=== PATIENT | female | born 1940 | race African-American/Black ===

== ENCOUNTER 2018-04-21 21:14 | Emergency (ER) | payer MEDICARE, MEDICAID ==
[~2018-04-21] VITALS: Ht 162.6 cm; Wt 66.0 kg
[2018-04-21] MEDS ORDERED: ONDANSETRON 4MG ODT PO ONE (22:45)
[2018-04-21] MEDS ORDERED: KETOROLAC 15MG/ML VIAL IV ONE (22:45)
[2018-04-21 23:25] LABS: BASOPHILS % 0.6 % (0.0-2.0); EOSINOPHILS % 2.2 % (0.0-5.0); HEMATOCRIT. 30.6 % (36.0-48.0); HEMOGLOBIN. 9.4 g/dL (12.0-16.0); LYMPHOCYTES % 15.5 % (20.0-50.0); MEAN CORPUSCULAR HEMOGLOBIN 23.4 pg (28.0-32.0); MEAN CORPUSCULAR VOLUME 75.8 fL (81.0-99.0); MEAN PLATELET VOLUME 7.9 fl (7.4-10.4); MONOCYTES % 7.4 % (2.0-8.0); NEUTROPHILS % 74.3 % (40.0-76.0); PLATELET 424 x1000/uL (130-400); RED BLOOD CELL COUNT 4.03 mill/uL (4.2-5.4); RED CELL DISTRIBUTION WIDTH 17.1 % (11.6-14.6)
[2018-04-21 23:28] LABS: CHLORIDE 102 mEq/L (98-107)
[2018-04-21 23:30] LABS: INR 1.1; PARTIAL THROMBOPLASTIN TIME 31.1 sec (23.4-31.0); PROTHROMBIN TIME 11.4 sec (9.1-11.1)
[2018-04-22] MEDS ORDERED: HYDROCODONE/ACETAMINOPHEN 5/325MG TABLET PO ONE
[2018-04-22 01:23] VITALS: BP 148/70
== END 2018-04-22 01:24 | disposition home or self-care (01) ==
LOC: ER 21:14
DX: M79.662 Pain in left lower leg (principal); R53.1 Weakness; I10 Essential (primary) hypertension; Z86.73 Personal history of transient ischemic attack (TIA), and cerebral infarction without residual deficits
CPT/HCPCS: 36415; 80053; 85025; 85610; 85730; 93970; 96374; 99285; J1885; Q0162

== ENCOUNTER 2018-08-28 19:28 | Inpatient (IN) | payer MEDICARE, MEDICAID ==
[~2018-08-28] VITALS: Ht 162.6 cm; Wt 56.2 kg
[2018-08-28] MEDS ORDERED: ACETAMINOPHEN 650MG SUPP PR STA (19:55)
[2018-08-28] MEDS ORDERED: PIPERACILLIN/TAZ 3.375G PREMIX 50 ML IV ONE (20:00)
[2018-08-28] MEDS ORDERED: SODIUM CHLORIDE 0.9% 1000ML BAG (SEPSIS BOLUS) IV ONE (20:00)
[2018-08-28] MEDS ORDERED: VANCOMYCIN 1 G PREMIX 200 ML IV ONE (20:00)
[2018-08-28 20:49] LABS: BASOPHILS % 0.8 % (0.0-2.0); EOSINOPHILS % 1.7 % (0.0-5.0); HEMATOCRIT. 32.6 % (36.0-48.0); LYMPHOCYTES % 17.1 % (20.0-50.0); MEAN CORPUSCULAR HEMOGLOBIN 20.7 pg (28.0-32.0); MEAN CORPUSCULAR VOLUME 67.5 fL (81.0-99.0); MEAN PLATELET VOLUME 8.3 fl (7.4-10.4); MONOCYTES % 13.5 % (2.0-8.0); NEUTROPHILS % 66.9 % (40.0-76.0); PLATELET 351 x1000/uL (130-400); RED BLOOD CELL COUNT 4.83 mill/uL (4.2-5.4); RED CELL DISTRIBUTION WIDTH 22.9 % (11.6-14.6)
[2018-08-28 20:54] LABS: CHLORIDE 98 mEq/L (98-107)
[2018-08-28 20:55] LABS: INR 1.1; PROTHROMBIN TIME 11.3 sec (9.1-11.1)
[2018-08-28 21:11] LABS: CLARITY URINE TURBID (CLEAR); COLOR URINE YELLOW (YELLOW); KETONES URINE NEGATIVE (NEGATIVE); LEUKOCYTE ESTERASE URINE 3+ (NEGATIVE); NITRITE URINE NEGATIVE (NEGATIVE); OCCULT BLOOD URINE 2+ (NEGATIVE); PH URINE 8.5 (4.5-8.0); PROTEIN URINE 2+ (NEGATIVE); SPECIFIC GRAVITY URINE 1.014 (1.005-1.030); UROBILINOGEN URINE 0.2 E.U./dL (0.2-1.0)
[2018-08-28 21:46] LABS: PLATELET ESTIMATE NORMAL
[2018-08-28] MEDS ORDERED: ONDANSETRON HCL 4MG/2ML INJ IV PRN (23:00)
[2018-08-28] MEDS ORDERED: CEFTRIAXONE 1 G PREMIX 50 ML IV SCH (23:00)
[2018-08-28] MEDS ORDERED: CLONIDINE 0.1MG TABLET PO PRN (23:00)
[2018-08-28] MEDS ORDERED: CEFTRIAXONE 1 G PREMIX 50 ML IV NR (23:45)
[2018-08-29] VITALS (8 sets, daily range): BP systolic 116–147; BP diastolic 57–86
[2018-08-29] MEDS: DEXT 5%/0.45% NACL 1000ML 1,000 ML IV SCH ×2 (00:16→14:12)
[2018-08-29 06:28] LABS: BASOPHILS % 1.2 % (0.0-2.0); EOSINOPHILS % 4.2 % (0.0-5.0); HEMOGLOBIN. 8.8 g/dL (12.0-16.0); LYMPHOCYTES % 16.3 % (20.0-50.0); MEAN CORPUSCULAR HEMOGLOBIN 20.7 pg (28.0-32.0); MEAN CORPUSCULAR VOLUME 68.3 fL (81.0-99.0); MEAN PLATELET VOLUME 8.6 fl (7.4-10.4); MONOCYTES % 13.2 % (2.0-8.0); NEUTROPHILS % 65.1 % (40.0-76.0); PLATELET 316 x1000/uL (130-400); RED BLOOD CELL COUNT 4.24 mill/uL (4.2-5.4); RED CELL DISTRIBUTION WIDTH 22.4 % (11.6-14.6)
[2018-08-29 06:33] LABS: CHLORIDE 107 mEq/L (98-107)
[2018-08-29] MEDS: ENOXAPARIN 40MG/0.4ML SYR SUBCUT SCH (09:30)
[2018-08-29] MEDS: ACETAMINOPHEN 325MG TABLET PO PRN ×2 (10:34→20:05)
[2018-08-29] MEDS ORDERED: CYCL10TA7 MT (12:18)
[2018-08-29] MEDS ORDERED: CLON-457 MT (12:18)
[2018-08-29] MEDS ORDERED: ATOR20TA65 MT (12:18)
[2018-08-29] MEDS ORDERED: VANCOMYCIN HCL 1000 MG/20 ML ORAL GT SCH (18:00)
[2018-08-29] MEDS: VANCOMYCIN HCL 1000 MG/20 ML ORAL GT SCH (20:05)
[2018-08-29] MEDS ORDERED: TRAMADOL 50MG TABLET GT PRN (21:00)
[2018-08-29] MEDS: KETOROLAC 15MG/ML VIAL IV PRN (21:10)
[2018-08-29] MEDS: CEFTRIAXONE 1,000 MG in DEXTROSE 5% WATER 50 ML IV SCH (22:42)
[2018-08-30] VITALS (11 sets, daily range): BP systolic 114–162; BP diastolic 62–98
[2018-08-30] MEDS: VANCOMYCIN HCL 1000 MG/20 ML ORAL GT SCH ×4 (01:54→20:52)
[2018-08-30] MEDS: DEXT 5%/0.45% NACL 1000ML 1,000 ML IV SCH (04:26)
[2018-08-30 06:58] LABS: BASOPHILS % 0.8 % (0.0-2.0); EOSINOPHILS % 5.8 % (0.0-5.0); HEMATOCRIT. 29.9 % (36.0-48.0); HEMOGLOBIN. 9.1 g/dL (12.0-16.0); LYMPHOCYTES % 15.6 % (20.0-50.0); MEAN CORPUSCULAR HEMOGLOBIN 20.8 pg (28.0-32.0); MEAN CORPUSCULAR VOLUME 68.5 fL (81.0-99.0); MEAN PLATELET VOLUME 8.3 fl (7.4-10.4); MONOCYTES % 10.3 % (2.0-8.0); NEUTROPHILS % 67.5 % (40.0-76.0); PLATELET 264 x1000/uL (130-400); RED BLOOD CELL COUNT 4.37 mill/uL (4.2-5.4); RED CELL DISTRIBUTION WIDTH 22.7 % (11.6-14.6)
[2018-08-30] MEDS: ENOXAPARIN 40MG/0.4ML SYR SUBCUT SCH (08:43)
[2018-08-30 08:52] LABS: CHLORIDE 103 mEq/L (98-107)
[2018-08-30] MEDS ORDERED: POTASSIUM CHLORIDE 20MEQ TABLET SR PO NR (09:45)
[2018-08-30] MEDS ORDERED: POTASSIUM CHLORIDE INJ 40 MEQ in DEXT 5% WATER 500 ML IV NR (12:00)
[2018-08-30] MEDS: AMLODIPINE 5MG TABLET PO SCH ×2 (14:00→20:21)
[2018-08-31] VITALS: BP 135/71
[2018-08-31] MEDS: CEFTRIAXONE 1,000 MG in DEXTROSE 5% WATER 50 ML IV SCH (00:55)
[2018-08-31] MEDS: KETOROLAC 15MG/ML VIAL IV PRN ×2 (00:55→19:54)
[2018-08-31] MEDS: VANCOMYCIN HCL 1000 MG/20 ML ORAL GT SCH ×4 (03:26→20:09)
[2018-08-31 04:00] VITALS: BP 175/82
[2018-08-31 08:00] VITALS: BP 141/76
[2018-08-31] MEDS: ENOXAPARIN 40MG/0.4ML SYR SUBCUT SCH (08:51)
[2018-08-31] MEDS: AMLODIPINE 5MG TABLET PO SCH ×2 (08:51→22:16)
[2018-08-31 11:15] LABS: CHLORIDE 100 mEq/L (98-107)
[2018-08-31 11:26] LABS: BASOPHILS % 0.7 % (0.0-2.0); EOSINOPHILS % 4.8 % (0.0-5.0); HEMATOCRIT. 34.3 % (36.0-48.0); HEMOGLOBIN. 10.5 g/dL (12.0-16.0); LYMPHOCYTES % 19.3 % (20.0-50.0); MEAN CORPUSCULAR VOLUME 68.6 fL (81.0-99.0); MEAN PLATELET VOLUME 8.6 fl (7.4-10.4); NEUTROPHILS % 66.2 % (40.0-76.0); PLATELET 297 x1000/uL (130-400); RED BLOOD CELL COUNT 5.01 mill/uL (4.2-5.4); RED CELL DISTRIBUTION WIDTH 22.4 % (11.6-14.6)
[2018-08-31 12:00] VITALS: BP 141/78
[2018-08-31 16:00] VITALS: BP 140/75
[2018-08-31] MEDS: DEXT 5%/0.45% NACL 1000ML 1,000 ML IV SCH (16:30)
[2018-08-31] MEDS: ZOLPIDEM TARTRATE 5MG TABLET PO PRN (19:55)
[2018-08-31 20:00] VITALS: BP 130/82
[2018-08-31] MEDS: CEFTAZIDIME PENTAHYDRATE 1 G in DEXTROSE 5% WATER 50 ML IV SCH (22:16)
[2018-09-01] VITALS: BP 134/83
[2018-09-01] MEDS: VANCOMYCIN HCL 1000 MG/20 ML ORAL GT SCH ×4 (03:00→22:45)
[2018-09-01 04:00] VITALS: BP 115/70
[2018-09-01 08:00] VITALS: BP 143/80
[2018-09-01] MEDS: AMLODIPINE 5MG TABLET PO SCH ×2 (09:16→20:59)
[2018-09-01] MEDS: CEFTAZIDIME PENTAHYDRATE 1 G in DEXTROSE 5% WATER 50 ML IV SCH ×2 (09:17→20:59)
[2018-09-01] MEDS: ENOXAPARIN 40MG/0.4ML SYR SUBCUT SCH (09:17)
[2018-09-01 09:55] LABS: CHLORIDE 102 mEq/L (98-107)
[2018-09-01 12:00] VITALS: BP 130/75
[2018-09-01] MEDS: DEXT 5%/0.45% NACL 1000ML 1,000 ML IV SCH ×2 (14:03→20:58)
[2018-09-01 16:00] VITALS: BP 140/77
[2018-09-01] MEDS: CYCLOBENZAPRINE 10MG TABLET PO SCH ×2 (16:03→22:45)
[2018-09-01 20:00] VITALS: BP 172/90
[2018-09-01] MEDS: KETOROLAC 15MG/ML VIAL IV PRN (20:53)
[2018-09-02] VITALS: BP 152/72
[2018-09-02 04:00] VITALS: BP 127/76
[2018-09-02] MEDS: VANCOMYCIN HCL 1000 MG/20 ML ORAL GT SCH ×3 (04:11→15:56)
[2018-09-02] MEDS: CYCLOBENZAPRINE 10MG TABLET PO SCH ×2 (06:57→15:55)
[2018-09-02 08:00] VITALS: BP 137/81
[2018-09-02] MEDS: AMLODIPINE 5MG TABLET PO SCH (09:00)
[2018-09-02 09:39] LABS: BASOPHILS % 0.6 % (0.0-2.0); HEMATOCRIT. 27.7 % (36.0-48.0); HEMOGLOBIN. 8.2 g/dL (12.0-16.0); LYMPHOCYTES % 11.5 % (20.0-50.0); MEAN CORPUSCULAR HEMOGLOBIN 21.1 pg (28.0-32.0); MEAN CORPUSCULAR VOLUME 71.1 fL (81.0-99.0); MEAN PLATELET VOLUME 7.9 fl (7.4-10.4); MONOCYTES % 7.3 % (2.0-8.0); NEUTROPHILS % 78.6 % (40.0-76.0); PLATELET 288 x1000/uL (130-400); RED CELL DISTRIBUTION WIDTH 22.5 % (11.6-14.6)
[2018-09-02 09:49] LABS: CHLORIDE 98 mEq/L (98-107)
[2018-09-02] MEDS: CEFTAZIDIME PENTAHYDRATE 1 G in DEXTROSE 5% WATER 50 ML IV SCH ×2 (10:17→21:00)
[2018-09-02] MEDS: ENOXAPARIN 40MG/0.4ML SYR SUBCUT SCH (10:21)
[2018-09-02] MEDS: DEXT 5%/0.45% NACL 1000ML 1,000 ML IV SCH ×2 (10:25→23:45)
[2018-09-02] MEDS: POTASSIUM CHLORIDE 20MEQ TABLET SR PO SCH (11:34)
[2018-09-02 12:00] VITALS: BP_SYST 134; BP_SYST 137; BP_DIAS 75; BP_DIAS 79
[2018-09-02] MEDS ORDERED: POTASSIUM CHLORIDE INJ 40 MEQ in DEXT 5% WATER 500 ML IV NR (12:00)
[2018-09-02 16:00] VITALS: BP 137/79
[2018-09-02] MEDS ORDERED: POTASSIUM CHLORIDE 20MEQ TABLET SR PO NR (16:30)
[2018-09-02 20:00] VITALS: BP 138/77
[2018-09-03] VITALS: BP 139/73
[2018-09-03] MEDS: AMLODIPINE 5MG TABLET PO SCH ×3 (00:41→20:12)
[2018-09-03] MEDS: CYCLOBENZAPRINE 10MG TABLET PO SCH ×4 (00:41→21:16)
[2018-09-03] MEDS: VANCOMYCIN HCL 1000 MG/20 ML ORAL GT SCH ×5 (00:43→20:13)
[2018-09-03 04:00] VITALS: BP 129/73
[2018-09-03 06:29] LABS: CHLORIDE 102 mEq/L (98-107)
[2018-09-03 06:35] LABS: BASOPHILS % 0.5 % (0.0-2.0); EOSINOPHILS % 3.5 % (0.0-5.0); HEMATOCRIT. 31.5 % (36.0-48.0); HEMOGLOBIN. 9.8 g/dL (12.0-16.0); LYMPHOCYTES % 11.7 % (20.0-50.0); MEAN CORPUSCULAR HEMOGLOBIN 20.9 pg (28.0-32.0); MEAN CORPUSCULAR VOLUME 67.4 fL (81.0-99.0); MEAN PLATELET VOLUME 8.6 fl (7.4-10.4); MONOCYTES % 7.4 % (2.0-8.0); NEUTROPHILS % 76.9 % (40.0-76.0); PLATELET 386 x1000/uL (130-400); RED BLOOD CELL COUNT 4.67 mill/uL (4.2-5.4); RED CELL DISTRIBUTION WIDTH 21.9 % (11.6-14.6)
[2018-09-03 08:00] VITALS: BP 110/68
[2018-09-03] MEDS: CEFTAZIDIME PENTAHYDRATE 1 G in DEXTROSE 5% WATER 50 ML IV SCH (08:46)
[2018-09-03] MEDS: ENOXAPARIN 40MG/0.4ML SYR SUBCUT SCH (09:00)
[2018-09-03] MEDS: POTASSIUM CHLORIDE 20MEQ TABLET SR PO SCH (09:12)
[2018-09-03 12:00] VITALS: BP 123/78
[2018-09-03] MEDS: DEXT 5%/0.45% NACL 1000ML 1,000 ML IV SCH (14:42)
[2018-09-03 20:00] VITALS: BP 140/109
[2018-09-03] MEDS: ACETAMINOPHEN 325MG TABLET PO PRN (21:53)
[2018-09-03] MEDS: ZOLPIDEM TARTRATE 5MG TABLET PO PRN (22:03)
[2018-09-04] VITALS: BP 139/76
[2018-09-04] MEDS: DEXT 5%/0.45% NACL 1000ML 1,000 ML IV SCH (02:46)
[2018-09-04] MEDS: VANCOMYCIN HCL 1000 MG/20 ML ORAL GT SCH ×3 (02:51→14:00)
[2018-09-04 04:00] VITALS: BP 141/77
[2018-09-04] MEDS: CYCLOBENZAPRINE 10MG TABLET PO SCH ×2 (06:02→13:59)
[2018-09-04 06:47] LABS: CHLORIDE 104 mEq/L (98-107)
[2018-09-04 08:00] VITALS: BP 120/68
[2018-09-04] MEDS: ENOXAPARIN 40MG/0.4ML SYR SUBCUT SCH (08:55)
[2018-09-04] MEDS: POTASSIUM CHLORIDE 20MEQ TABLET SR PO SCH (08:56)
[2018-09-04] MEDS: AMLODIPINE 5MG TABLET PO SCH (08:56)
[2018-09-04 09:36] LABS: BASOPHILS % 0.3 % (0.0-2.0); EOSINOPHILS % 3.1 % (0.0-5.0); HEMATOCRIT. 29.8 % (36.0-48.0); HEMOGLOBIN. 9.2 g/dL (12.0-16.0); LYMPHOCYTES % 11.2 % (20.0-50.0); MEAN CORPUSCULAR HEMOGLOBIN 20.7 pg (28.0-32.0); MEAN CORPUSCULAR VOLUME 67.2 fL (81.0-99.0); MEAN PLATELET VOLUME 7.6 fl (7.4-10.4); MONOCYTES % 6.2 % (2.0-8.0); NEUTROPHILS % 79.2 % (40.0-76.0); PLATELET 392 x1000/uL (130-400); RED BLOOD CELL COUNT 4.43 mill/uL (4.2-5.4); RED CELL DISTRIBUTION WIDTH 22.1 % (11.6-14.6)
[2018-09-04 12:20] VITALS: BP 146/72
[2018-09-04 16:00] VITALS: BP 130/73
== END 2018-09-04 17:54 | disposition home health service (06) | DRG 871 ==
LOC: ER 19:28 → EDBEDREQ 21:16 → EDBEDREQSVC 21:16 → EDBEDREQTM 21:16 → EDBEDREQ 21:17 → 5EST 21:28 → EDBEDREQSVC 21:31 → EDBEDREQ 21:31 → SUPCPDRO 22:56 → ENRESERV 08-29 09:52 → 6EST 08-30 17:26
PROVIDERS: ADMIT Hospitalist; ATTEND Hospitalist
PROC: 02HV33Z Insertion of Infusion Device into Superior Vena Cava, Percutaneous Approach (ICD-10-PCS; principal; 2018-09-03)
PROC: B548ZZA Ultrasonography of Superior Vena Cava, Guidance (ICD-10-PCS; 2018-09-03)
DX: A41.50 Gram-negative sepsis, unspecified (principal); L89.624 Pressure ulcer of left heel, stage 4; E43 Unspecified severe protein-calorie malnutrition; G93.40 Encephalopathy, unspecified; N39.0 Urinary tract infection, site not specified; A04.72 Enterocolitis due to Clostridium difficile, not specified as recurrent; E87.1 Hypo-osmolality and hyponatremia; I69.354 Hemiplegia and hemiparesis following cerebral infarction affecting left non-dominant side; E11.9 Type 2 diabetes mellitus without complications; E87.6 Hypokalemia; Z66 Do not resuscitate; F03.90 Unspecified dementia, unspecified severity, without behavioral disturbance, psychotic disturbance, mood disturbance, and anxiety; B95.2 Enterococcus as the cause of diseases classified elsewhere; Z16.21 Resistance to vancomycin; D64.9 Anemia, unspecified; H40.9 Unspecified glaucoma; E78.00 Pure hypercholesterolemia, unspecified; I10 Essential (primary) hypertension; I25.10 Atherosclerotic heart disease of native coronary artery without angina pectoris; K21.9 Gastro-esophageal reflux disease without esophagitis; L89.159 Pressure ulcer of sacral region, unspecified stage; Z87.891 Personal history of nicotine dependence; Z93.1 Gastrostomy status; Z68.21 Body mass index [BMI] 21.0-21.9, adult
CPT/HCPCS: 36415; 36569; 71045; 76937; 83605; 83735; 84145; 84484; 87015; 87045; 87077; 87186; 87427; 87449; 87493; 93005; 93970; 96365; 96367; 99291; C1725; C1893; J0696; J0713; J1650; J1885; J2543; J3370; J3480; J7030; J7060

== ENCOUNTER 2018-10-09 18:49 | Inpatient (IN) | payer MEDICARE, MEDICAID ==
[~2018-10-09] VITALS: Ht 162.6 cm; Wt 57.0 kg
[~2018-10-09 18:49] MED LIST: ATOR20TA65 MT; CLON-457 MT; CYCL10TA7 MT
[2018-10-09] MEDS ORDERED: SODIUM CHLORIDE 0.9% 1,000 ML IV ONE ×2 (19:29)
[2018-10-09 20:06] LABS: BASOPHILS % 0.9 % (0.0-2.0); EOSINOPHILS % 4.8 % (0.0-5.0); HEMATOCRIT. 36.6 % (36.0-48.0); HEMOGLOBIN. 11.4 g/dL (12.0-16.0); LYMPHOCYTES % 11.2 % (20.0-50.0); MEAN CORPUSCULAR HEMOGLOBIN 21.9 pg (28.0-32.0); MEAN CORPUSCULAR VOLUME 70.4 fL (81.0-99.0); MONOCYTES % 7.2 % (2.0-8.0); NEUTROPHILS % 75.9 % (40.0-76.0); PLATELET 363 x1000/uL (130-400); RED CELL DISTRIBUTION WIDTH 21.8 % (11.6-14.6)
[2018-10-09 20:10] LABS: CHLORIDE 109 mEq/L (98-107)
[2018-10-09 20:11] LABS: INR 1.1; PROTHROMBIN TIME 11.5 sec (9.1-11.1)
[2018-10-09] MEDS ORDERED: PIPERACILLIN/TAZ 3.375G PREMIX 50 ML IV ONE (21:00)
[2018-10-09] MEDS ORDERED: VANCOMYCIN 1 G PREMIX 200 ML IV SCH (21:00)
[2018-10-10 02:19] LABS: CLARITY URINE TURBID (CLEAR); COLOR URINE RED (YELLOW); KETONES URINE TRACE (NEGATIVE); LEUKOCYTE ESTERASE URINE 3+ (NEGATIVE); NITRITE URINE POSITIVE (NEGATIVE); OCCULT BLOOD URINE 3+ (NEGATIVE); PROTEIN URINE 4+ (NEGATIVE); SPECIFIC GRAVITY URINE 1.021 (1.005-1.030); UROBILINOGEN URINE 0.2 E.U./dL (0.2-1.0)
[2018-10-10] MEDS ORDERED: PIPERACILLIN/TAZ 3.375G PREMIX 50 ML IV SCH (06:00)
[2018-10-10] MEDS ORDERED: ONDANSETRON HCL 4MG/2ML INJ IV PRN (06:00)
[2018-10-10] MEDS ORDERED: DOCUSATE SODIUM 100MG CAPSULE PO PRN (06:00)
[2018-10-10] MEDS ORDERED: ACETAMINOPHEN 650MG SUPP PR PRN (06:00)
[2018-10-10] MEDS ORDERED: GUAIFENESIN 200MG/10ML SUGAR FREE UDC PO PRN (06:00)
[2018-10-10 08:00] VITALS: BP 142/88
[2018-10-10 10:00] VITALS: BP 142/89
[2018-10-10] MEDS ORDERED: VANCOMYCIN 750 MG PREMIX 150 ML IV SCH (10:00)
[2018-10-10] MEDS: ENOXAPARIN 40MG/0.4ML SYR SUBCUT SCH (10:39)
[2018-10-10] MEDS: DEXT 5%/0.45% NACL 1000ML 1,000 ML IV SCH (10:41)
[2018-10-10 12:00] VITALS: BP 147/86
[2018-10-10] MEDS: PIPERACILLIN/TAZ 3.375G PREMIX 50 ML IV SCH ×3 (13:00→23:47)
[2018-10-10 16:00] VITALS: BP 161/91
[2018-10-10 20:00] VITALS: BP 145/77
[2018-10-10] MEDS: VANCOMYCIN HCL 1000 MG/20 ML ORAL GT SCH ×2 (20:12→23:45)
[2018-10-11] VITALS: BP 134/81
[2018-10-11 04:00] VITALS: BP 144/90
[2018-10-11] MEDS: VANCOMYCIN HCL 1000 MG/20 ML ORAL GT SCH ×3 (05:12→18:51)
[2018-10-11] MEDS: PIPERACILLIN/TAZ 3.375G PREMIX 50 ML IV SCH ×3 (05:13→18:51)
[2018-10-11] MEDS: DEXT 5%/0.45% NACL 1000ML 1,000 ML IV SCH (05:13)
[2018-10-11 07:06] LABS: BASOPHILS % 0.9 % (0.0-2.0); EOSINOPHILS % 7.7 % (0.0-5.0); HEMATOCRIT. 32.9 % (36.0-48.0); HEMOGLOBIN. 10.1 g/dL (12.0-16.0); MEAN CORPUSCULAR HEMOGLOBIN 21.7 pg (28.0-32.0); MEAN CORPUSCULAR VOLUME 70.7 fL (81.0-99.0); MEAN PLATELET VOLUME 8.4 fl (7.4-10.4); MONOCYTES % 9.2 % (2.0-8.0); NEUTROPHILS % 73.2 % (40.0-76.0); PLATELET 364 x1000/uL (130-400); RED BLOOD CELL COUNT 4.66 mill/uL (4.2-5.4); RED CELL DISTRIBUTION WIDTH 21.5 % (11.6-14.6)
[2018-10-11 07:32] LABS: CHLORIDE 114 mEq/L (98-107)
[2018-10-11 08:00] VITALS: BP 169/73
[2018-10-11] MEDS: CLONIDINE 0.1MG TABLET PO PRN (09:32)
[2018-10-11] MEDS: ENOXAPARIN 40MG/0.4ML SYR SUBCUT SCH (09:32)
[2018-10-11 12:00] VITALS: BP 147/85
[2018-10-11] MEDS ORDERED: ACETAMINOPHEN 650MG/20.3ML UDC GT PRN (12:00)
[2018-10-11] MEDS: DEXT 5% WATER + KCL 20MEQ/L 1,000 ML IV SCH (14:47)
[2018-10-11 16:00] VITALS: BP 141/74
[2018-10-11 20:00] VITALS: BP 137/74
[2018-10-11] MEDS: CLOTRIMAZOLE 1% CREAM 30GM TOP SCH (22:23)
[2018-10-12] VITALS: BP 126/71
[2018-10-12] MEDS: PIPERACILLIN/TAZ 3.375G PREMIX 50 ML IV SCH ×5 (00:57→23:39)
[2018-10-12] MEDS: VANCOMYCIN HCL 1000 MG/20 ML ORAL GT SCH ×5 (00:57→23:42)
[2018-10-12 04:00] VITALS: BP 137/72
[2018-10-12] MEDS: DEXT 5% WATER + KCL 20MEQ/L 1,000 ML IV SCH ×2 (06:04→18:47)
[2018-10-12 07:27] LABS: BASOPHILS % 0.9 % (0.0-2.0); EOSINOPHILS % 10.2 % (0.0-5.0); HEMATOCRIT. 31.5 % (36.0-48.0); HEMOGLOBIN. 9.7 g/dL (12.0-16.0); LYMPHOCYTES % 14.9 % (20.0-50.0); MEAN CORPUSCULAR HEMOGLOBIN 21.9 pg (28.0-32.0); MEAN CORPUSCULAR VOLUME 70.9 fL (81.0-99.0); MEAN PLATELET VOLUME 8.5 fl (7.4-10.4); MONOCYTES % 8.5 % (2.0-8.0); NEUTROPHILS % 65.5 % (40.0-76.0); PLATELET 355 x1000/uL (130-400); RED BLOOD CELL COUNT 4.44 mill/uL (4.2-5.4); RED CELL DISTRIBUTION WIDTH 21.8 % (11.6-14.6)
[2018-10-12 07:57] LABS: CHLORIDE 110 mEq/L (98-107)
[2018-10-12 08:00] VITALS: BP 140/79
[2018-10-12] MEDS: ENOXAPARIN 40MG/0.4ML SYR SUBCUT SCH (09:53)
[2018-10-12] MEDS: POTASSIUM CHLORIDE 20MEQ TABLET SR PO SCH (09:53)
[2018-10-12] MEDS: CLOTRIMAZOLE 1% CREAM 30GM TOP SCH ×2 (09:53→21:25)
[2018-10-12 12:10] VITALS: BP 165/92
[2018-10-12] MEDS: CLONIDINE 0.1MG TABLET PO PRN (12:53)
[2018-10-12 16:00] VITALS: BP 145/87
[2018-10-12 20:00] VITALS: BP 141/71
[2018-10-13] VITALS: BP 126/80
[2018-10-13 04:00] VITALS: BP 169/88
[2018-10-13] MEDS: DEXT 5% WATER + KCL 20MEQ/L 1,000 ML IV SCH ×2 (05:02→18:20)
[2018-10-13] MEDS: PIPERACILLIN/TAZ 3.375G PREMIX 50 ML IV SCH ×4 (05:02→23:29)
[2018-10-13] MEDS: VANCOMYCIN HCL 1000 MG/20 ML ORAL GT SCH ×4 (05:02→23:30)
[2018-10-13 07:35] LABS: CHLORIDE 100 mEq/L (98-107)
[2018-10-13 08:00] VITALS: BP 164/95
[2018-10-13] MEDS: ENOXAPARIN 40MG/0.4ML SYR SUBCUT SCH (08:55)
[2018-10-13] MEDS: POTASSIUM CHLORIDE 20MEQ TABLET SR PO SCH (08:56)
[2018-10-13] MEDS: CLONIDINE 0.1MG TABLET PO PRN (08:56)
[2018-10-13] MEDS: CLOTRIMAZOLE 1% CREAM 30GM TOP SCH ×2 (08:57→21:16)
[2018-10-13 11:05] LABS: BASOPHILS % 0.6 % (0.0-2.0); EOSINOPHILS % 12.7 % (0.0-5.0); HEMATOCRIT. 33.9 % (36.0-48.0); HEMOGLOBIN. 10.5 g/dL (12.0-16.0); LYMPHOCYTES % 14.7 % (20.0-50.0); MEAN CORPUSCULAR HEMOGLOBIN 21.7 pg (28.0-32.0); MEAN CORPUSCULAR VOLUME 70.5 fL (81.0-99.0); MEAN PLATELET VOLUME 8.2 fl (7.4-10.4); MONOCYTES % 7.2 % (2.0-8.0); NEUTROPHILS % 64.8 % (40.0-76.0); PLATELET 344 x1000/uL (130-400); RED BLOOD CELL COUNT 4.82 mill/uL (4.2-5.4); RED CELL DISTRIBUTION WIDTH 21.3 % (11.6-14.6)
[2018-10-13 12:00] VITALS: BP 177/94
[2018-10-13] MEDS: TRAMADOL 50MG TABLET GT PRN ×2 (13:00→21:16)
[2018-10-13] MEDS: ATENOLOL 25MG TABLET PO SCH ×2 (14:02→21:16)
[2018-10-13 16:00] VITALS: BP 130/77
[2018-10-13 20:00] VITALS: BP 128/75
[2018-10-14] VITALS: BP 107/53
[2018-10-14] MEDS: DEXT 5% WATER + KCL 20MEQ/L 1,000 ML IV SCH (01:17)
[2018-10-14 04:00] VITALS: BP 116/57
[2018-10-14] MEDS: VANCOMYCIN HCL 1000 MG/20 ML ORAL GT SCH ×3 (05:14→17:22)
[2018-10-14 08:00] VITALS: BP 156/82
[2018-10-14] MEDS: CLOTRIMAZOLE 1% CREAM 30GM TOP SCH ×2 (09:04→20:42)
[2018-10-14] MEDS: ATENOLOL 25MG TABLET PO SCH ×2 (09:05→20:30)
[2018-10-14] MEDS: POTASSIUM CHLORIDE 20MEQ TABLET SR PO SCH (09:05)
[2018-10-14] MEDS: ENOXAPARIN 40MG/0.4ML SYR SUBCUT SCH (09:05)
[2018-10-14 12:00] VITALS: BP 114/75
[2018-10-14 16:00] VITALS: BP 162/89
[2018-10-14 20:00] VITALS: BP 143/108
[2018-10-14] MEDS: TRAMADOL 50MG TABLET GT PRN (20:31)
[2018-10-15] VITALS: BP 131/77
[2018-10-15] MEDS: VANCOMYCIN HCL 1000 MG/20 ML ORAL GT SCH ×3 (00:51→11:49)
[2018-10-15 04:00] VITALS: BP 128/67
[2018-10-15] MEDS: DEXT 5% WATER + KCL 20MEQ/L 1,000 ML IV SCH ×2 (04:29→11:49)
[2018-10-15 08:00] VITALS: BP 130/76
[2018-10-15] MEDS: POTASSIUM CHLORIDE 20MEQ TABLET SR PO SCH (09:57)
[2018-10-15] MEDS: ENOXAPARIN 40MG/0.4ML SYR SUBCUT SCH (09:58)
[2018-10-15] MEDS: ATENOLOL 25MG TABLET PO SCH (09:58)
[2018-10-15] MEDS: CLOTRIMAZOLE 1% CREAM 30GM TOP SCH (09:59)
[2018-10-15] MEDS ORDERED: IPRATROPIUM/ALBUTEROL 0.5-3(2.5)MG/3ML NEB HHN PRN (11:45)
[2018-10-15 12:00] VITALS: BP 149/84
[2018-10-15 16:00] VITALS: BP 143/67
[2018-10-15 17:34] VITALS: BP 143/67
== END 2018-10-15 18:25 | disposition home health service (06) | DRG 871 ==
LOC: ER 18:49 → 5WST 21:14 → EDBEDREQ 21:16 → EDBEDREQSVC 21:16 → EDBEDREQTM 21:16 → ENRESERV 10-10 07:12
PROVIDERS: ADMIT Hospitalist; ATTEND Hospitalist
DX: A41.9 Sepsis, unspecified organism (principal); E43 Unspecified severe protein-calorie malnutrition; G93.41 Metabolic encephalopathy; N39.0 Urinary tract infection, site not specified; E87.0 Hyperosmolality and hypernatremia; A04.71 Enterocolitis due to Clostridium difficile, recurrent; M86.8X7 Other osteomyelitis, ankle and foot; E86.0 Dehydration; Z66 Do not resuscitate; L89.159 Pressure ulcer of sacral region, unspecified stage; B35.4 Tinea corporis; B36.9 Superficial mycosis, unspecified; D64.9 Anemia, unspecified; E11.51 Type 2 diabetes mellitus with diabetic peripheral angiopathy without gangrene; L89.229 Pressure ulcer of left hip, unspecified stage; S40.222A Blister (nonthermal) of left shoulder, initial encounter; X58.XXXA Exposure to other specified factors, initial encounter; L89.529 Pressure ulcer of left ankle, unspecified stage; L89.519 Pressure ulcer of right ankle, unspecified stage; F01.50 Vascular dementia, unspecified severity, without behavioral disturbance, psychotic disturbance, mood disturbance, and anxiety; I10 Essential (primary) hypertension; I25.10 Atherosclerotic heart disease of native coronary artery without angina pectoris; M20.40 Other hammer toe(s) (acquired), unspecified foot; Z86.73 Personal history of transient ischemic attack (TIA), and cerebral infarction without residual deficits; Z79.899 Other long term (current) drug therapy; Y93.89 Activity, other specified; Y92.89 Other specified places as the place of occurrence of the external cause; Y99.8 Other external cause status; Z74.01 Bed confinement status; Z93.1 Gastrostomy status; Z68.21 Body mass index [BMI] 21.0-21.9, adult
CPT/HCPCS: 36415; 71045; 73630; 82962; 83605; 83735; 83880; 84134; 84145; 84484; 85651; 86140; 87045; 87493; 93005; 93923; 93970; 96365; 96366; 96367; 99285; C1893; J1650; J2543; J3370; J7030; J7050; J7060

== ENCOUNTER 2018-11-16 11:48 | Inpatient (IN) | payer MEDICARE, MEDICAID ==
[~2018-11-16] VITALS: Ht 160 cm; Wt 52.6 kg
[2018-11-16] MEDS ORDERED: SODIUM CHLORIDE 0.9% 1000ML BAG (SEPSIS BOLUS) IV ONE (12:45)
[2018-11-16 13:10] LABS: BASOPHILS % 0.7 % (0.0-2.0); HEMATOCRIT. 37.9 % (36.0-48.0); HEMOGLOBIN. 11.5 g/dL (12.0-16.0); LYMPHOCYTES % 16.4 % (20.0-50.0); MEAN CORPUSCULAR VOLUME 72.9 fL (81.0-99.0); MONOCYTES % 6.3 % (2.0-8.0); NEUTROPHILS % 65.6 % (40.0-76.0); PLATELET 322 x1000/uL (130-400)
[2018-11-16 13:19] LABS: CHLORIDE 114 mEq/L (98-107)
[2018-11-16 13:20] LABS: INR 1.1; PARTIAL THROMBOPLASTIN TIME 32.2 sec (23.4-31.0)
[2018-11-16] MEDS ORDERED: CLONIDINE 0.1MG TABLET PO PRN (14:30)
[2018-11-16] MEDS ORDERED: MORPHINE SULFATE 2 MG/ML CPJ (NOT FOR IM USE) IV ONE (14:30)
[2018-11-16] MEDS ORDERED: ONDANSETRON HCL 4MG/2ML INJ IV PRN (14:30)
[2018-11-16] MEDS ORDERED: CEFTRIAXONE 1 G PREMIX 50 ML IV ONE (14:45)
[2018-11-16] MEDS ORDERED: MORPHINE SULFATE 4 MG/ML CPJ (NOT FOR IM USE) IV NR (15:00)
[2018-11-16 15:21] LABS: CLARITY URINE TURBID (CLEAR); COLOR URINE YELLOW (YELLOW); KETONES URINE NEGATIVE (NEGATIVE); LEUKOCYTE ESTERASE URINE 3+ (NEGATIVE); NITRITE URINE NEGATIVE (NEGATIVE); OCCULT BLOOD URINE 1+ (NEGATIVE); PROTEIN URINE TRACE (NEGATIVE); SPECIFIC GRAVITY URINE 1.013 (1.005-1.030); UROBILINOGEN URINE 0.2 E.U./dL (0.2-1.0)
[2018-11-16 23:00] VITALS: BP 126/78
[2018-11-17] VITALS: BP 125/69
[2018-11-17] MEDS: PANTOPRAZOLE SODIUM 40 MG/VIAL IV SCH ×2 (00:59→22:31)
[2018-11-17] MEDS: ENOXAPARIN 30MG/0.3ML SYR SUBCUT SCH ×2 (00:59→22:32)
[2018-11-17] MEDS: SODIUM CHLORIDE 0.45% 1,000 ML IV SCH ×2 (02:33→22:44)
[2018-11-17 06:13] LABS: BASOPHILS % 1.1 % (0.0-2.0); EOSINOPHILS % 12.3 % (0.0-5.0); HEMATOCRIT. 36.1 % (36.0-48.0); HEMOGLOBIN. 10.9 g/dL (12.0-16.0); LYMPHOCYTES % 18.9 % (20.0-50.0); MEAN CORPUSCULAR HEMOGLOBIN 21.9 pg (28.0-32.0); MEAN CORPUSCULAR VOLUME 72.6 fL (81.0-99.0); MEAN PLATELET VOLUME 9.2 fl (7.4-10.4); MONOCYTES % 5.7 % (2.0-8.0); PLATELET 284 x1000/uL (130-400); RED BLOOD CELL COUNT 4.97 mill/uL (4.2-5.4); RED CELL DISTRIBUTION WIDTH 20.7 % (11.6-14.6)
[2018-11-17 07:28] LABS: CHLORIDE 114 mEq/L (98-107)
[2018-11-17 08:00] VITALS: BP 138/79
[2018-11-17] MEDS ORDERED: MORPHINE SULFATE 4 MG/ML CPJ (NOT FOR IM USE) IV PRN (11:15)
[2018-11-17 12:00] VITALS: BP 125/77
[2018-11-17 16:00] VITALS: BP 160/84
[2018-11-17] MEDS ORDERED: CEFTRIAXONE 1 G PREMIX 50 ML IV SCH (16:00)
[2018-11-17] MEDS: HYDROCODONE/ACETAMINOPHEN 5/325MG TABLET PO PRN (16:55)
[2018-11-17 20:00] VITALS: BP 150/90
[2018-11-18] VITALS: BP 167/88
[2018-11-18 04:00] VITALS: BP 159/86
[2018-11-18 06:37] LABS: BASOPHILS % 0.5 % (0.0-2.0); EOSINOPHILS % 12.5 % (0.0-5.0); HEMATOCRIT. 34.3 % (36.0-48.0); HEMOGLOBIN. 10.7 g/dL (12.0-16.0); LYMPHOCYTES % 14.3 % (20.0-50.0); MEAN CORPUSCULAR HEMOGLOBIN 22.1 pg (28.0-32.0); MEAN CORPUSCULAR VOLUME 71.2 fL (81.0-99.0); MEAN PLATELET VOLUME 9.1 fl (7.4-10.4); MONOCYTES % 7.1 % (2.0-8.0); NEUTROPHILS % 65.6 % (40.0-76.0); PLATELET 264 x1000/uL (130-400); RED BLOOD CELL COUNT 4.82 mill/uL (4.2-5.4); RED CELL DISTRIBUTION WIDTH 21.3 % (11.6-14.6)
[2018-11-18 07:30] LABS: CHLORIDE 110 mEq/L (98-107)
[2018-11-18 08:00] VITALS: BP_SYST 142; BP_SYST 161; BP_DIAS 55; BP_DIAS 76
[2018-11-18] MEDS ORDERED: POTASSIUM CHLORIDE 20MEQ TABLET SR PO SCH (10:45)
[2018-11-18 11:04] LABS: PLATELET ESTIMATE NORMAL
[2018-11-18 12:00] VITALS: BP 140/70
[2018-11-18] MEDS ORDERED: CHLORHEXIDINE GLUCONATE 4% EXTERNAL USE TOP SCH (12:00)
[2018-11-18] MEDS ORDERED: MUPIROCIN 2% OINT 22GM TOP SCH (12:00)
[2018-11-18] MEDS: HYDROCODONE/ACETAMINOPHEN 5/325MG TABLET PO PRN (12:42)
[2018-11-18 15:30] VITALS: BP 152/92
== END 2018-11-18 15:40 | disposition home or self-care (01) | DRG 689 ==
LOC: ER 12:05 → 5WST 14:32 → ENRESERV 20:54
PROVIDERS: ADMIT Hospitalist; ATTEND Hospitalist
DX: N39.0 Urinary tract infection, site not specified (principal); E43 Unspecified severe protein-calorie malnutrition; A04.71 Enterocolitis due to Clostridium difficile, recurrent; I69.354 Hemiplegia and hemiparesis following cerebral infarction affecting left non-dominant side; R65.10 Systemic inflammatory response syndrome (SIRS) of non-infectious origin without acute organ dysfunction; R62.7 Adult failure to thrive; Z66 Do not resuscitate; F03.90 Unspecified dementia, unspecified severity, without behavioral disturbance, psychotic disturbance, mood disturbance, and anxiety; I10 Essential (primary) hypertension; R13.10 Dysphagia, unspecified; Z93.1 Gastrostomy status; Z68.20 Body mass index [BMI] 20.0-20.9, adult; Z86.19 Personal history of other infectious and parasitic diseases
CPT/HCPCS: 36415; 71045; 83605; 83880; 84145; 84484; 93005; 93970; 96365; 96366; 96375; 99285; A6261; C1893; C9113; J0696; J1650; J2270; J7030

== ENCOUNTER 2019-01-25 08:23 | Inpatient (IN) | payer MEDICARE, MEDICAID ==
[~2019-01-25] VITALS: Ht 157.5 cm; Wt 52.2 kg
[2019-01-25] MEDS ORDERED: SODIUM CHLORIDE 0.9% 1000ML BAG (SEPSIS BOLUS) IV ONE (09:45)
[2019-01-25 10:29] LABS: BASOPHILS % 0.9 % (0.0-2.0); EOSINOPHILS % 9.8 % (0.0-5.0); HEMATOCRIT. 33.1 % (36.0-48.0); HEMOGLOBIN. 10.2 g/dL (12.0-16.0); LYMPHOCYTES % 14.6 % (20.0-50.0); MEAN CORPUSCULAR HEMOGLOBIN 22.3 pg (28.0-32.0); MEAN CORPUSCULAR VOLUME 72.3 fL (81.0-99.0); MONOCYTES % 7.7 % (2.0-8.0); RED BLOOD CELL COUNT 4.58 mill/uL (4.2-5.4); RED CELL DISTRIBUTION WIDTH 17.5 % (11.6-14.6)
[2019-01-25 10:31] LABS: CHLORIDE 106 mEq/L (98-107)
[2019-01-25 13:08] LABS: CLARITY URINE TURBID (CLEAR); COLOR URINE YELLOW (YELLOW); KETONES URINE NEGATIVE (NEGATIVE); LEUKOCYTE ESTERASE URINE 3+ (NEGATIVE); NITRITE URINE POSITIVE (NEGATIVE); OCCULT BLOOD URINE 2+ (NEGATIVE); PROTEIN URINE NEGATIVE (NEGATIVE); SPECIFIC GRAVITY URINE 1.015 (1.005-1.030); UROBILINOGEN URINE 0.2 E.U./dL (0.2-1.0)
[2019-01-25] MEDS ORDERED: CEFTRIAXONE 1 G PREMIX 50 ML IV ONE (13:30)
[2019-01-25] MEDS ORDERED: ONDANSETRON HCL 4MG/2ML INJ IV PRN (14:15)
[2019-01-25] MEDS ORDERED: ACETAMINOPHEN 325MG TABLET PO PRN (14:15)
[2019-01-25] MEDS ORDERED: HYDROMORPHONE HCL/PF 2MG/ML CPJ IV PRN (14:15)
[2019-01-25 17:41] VITALS: BP 134/82
[2019-01-25] MEDS ORDERED: LEVOFLOXACIN 500MG PREMIX 100 ML IV SCH (19:00)
[2019-01-25] MEDS ORDERED: ENOXAPARIN 40MG/0.4ML SYR SUBCUT SCH (19:00)
[2019-01-25 20:00] VITALS: BP 139/73
[2019-01-26] VITALS: BP 138/85
[2019-01-26 04:00] VITALS: BP 130/71
[2019-01-26 07:19] LABS: BASOPHILS % 0.7 % (0.0-2.0); EOSINOPHILS % 5.8 % (0.0-5.0); HEMATOCRIT. 32.8 % (36.0-48.0); LYMPHOCYTES % 12.1 % (20.0-50.0); MEAN CORPUSCULAR HEMOGLOBIN 22.3 pg (28.0-32.0); MEAN PLATELET VOLUME 8.7 fl (7.4-10.4); MONOCYTES % 8.2 % (2.0-8.0); NEUTROPHILS % 73.2 % (40.0-76.0); PLATELET 438 x1000/uL (130-400); RED CELL DISTRIBUTION WIDTH 17.8 % (11.6-14.6)
[2019-01-26 07:37] LABS: CHLORIDE 107 mEq/L (98-107)
[2019-01-26] MEDS: SODIUM CHLORIDE 0.9% 1,000 ML IV SCH ×2 (09:26→16:46)
[2019-01-26] MEDS ORDERED: LIDOCAINE HCL 1% 20ML VIAL (Pyxis) INJ ONE (11:12)
[2019-01-26 12:00] VITALS: BP 120/75
[2019-01-26] MEDS: ENOXAPARIN 30MG/0.3ML SYR SUBCUT SCH (17:24)
[2019-01-26] MEDS: LEVOFLOXACIN 250MG PREMIX 50 ML IV SCH (19:06)
[2019-01-26 20:00] VITALS: BP 128/75
[2019-01-27] VITALS: BP 141/79
[2019-01-27 04:00] VITALS: BP 118/68
[2019-01-27 06:17] LABS: BASOPHILS % 0.7 % (0.0-2.0); EOSINOPHILS % 7.7 % (0.0-5.0); HEMATOCRIT. 28.2 % (36.0-48.0); HEMOGLOBIN. 8.7 g/dL (12.0-16.0); LYMPHOCYTES % 15.1 % (20.0-50.0); MEAN CORPUSCULAR HEMOGLOBIN 22.7 pg (28.0-32.0); MEAN CORPUSCULAR VOLUME 73.3 fL (81.0-99.0); MEAN PLATELET VOLUME 8.5 fl (7.4-10.4); MONOCYTES % 9.9 % (2.0-8.0); NEUTROPHILS % 66.6 % (40.0-76.0); PLATELET 369 x1000/uL (130-400); RED BLOOD CELL COUNT 3.85 mill/uL (4.2-5.4); RED CELL DISTRIBUTION WIDTH 17.2 % (11.6-14.6)
[2019-01-27 07:01] LABS: CHLORIDE 112 mEq/L (98-107)
[2019-01-27 08:00] VITALS: BP 140/80
[2019-01-27] MEDS: SODIUM CHLORIDE 0.9% 1,000 ML IV SCH (09:57)
[2019-01-27] MEDS ORDERED: POTASSIUM CHLORIDE INJ 40 MEQ in DEXT 5% WATER 250 ML IV SCH (11:00)
[2019-01-27 12:00] VITALS: BP 120/75
[2019-01-27 16:00] VITALS: BP 141/76
[2019-01-27] MEDS: ENOXAPARIN 30MG/0.3ML SYR SUBCUT SCH (17:34)
[2019-01-27] MEDS: LEVOFLOXACIN 250MG PREMIX 50 ML IV SCH (19:51)
[2019-01-27 20:00] VITALS: BP 125/71
[2019-01-28] VITALS: BP 130/72
[2019-01-28 04:00] VITALS: BP 141/89
[2019-01-28] MEDS: SODIUM CHLORIDE 0.9% 1,000 ML IV SCH (04:16)
[2019-01-28 06:03] LABS: BASOPHILS % 0.8 % (0.0-2.0); EOSINOPHILS % 6.9 % (0.0-5.0); HEMATOCRIT. 28.1 % (36.0-48.0); HEMOGLOBIN. 8.7 g/dL (12.0-16.0); LYMPHOCYTES % 9.7 % (20.0-50.0); MEAN CORPUSCULAR HEMOGLOBIN 22.6 pg (28.0-32.0); MEAN CORPUSCULAR VOLUME 73.2 fL (81.0-99.0); MONOCYTES % 7.2 % (2.0-8.0); NEUTROPHILS % 75.4 % (40.0-76.0); PLATELET 356 x1000/uL (130-400); RED BLOOD CELL COUNT 3.84 mill/uL (4.2-5.4); RED CELL DISTRIBUTION WIDTH 17.2 % (11.6-14.6)
[2019-01-28 06:24] LABS: CHLORIDE 112 mEq/L (98-107)
[2019-01-28 08:00] VITALS: BP 148/76
[2019-01-28 12:00] VITALS: BP 140/89
[2019-01-28] MEDS ORDERED: DEXT 5% WATER + KCL 40MEQ/L 1,000 ML IV SCH (14:00)
[2019-01-28 16:00] VITALS: BP 140/89
[2019-01-28] MEDS: POTASSIUM CHLORIDE INJ 40 MEQ in DEXTROSE 5% WATER 1,000 ML IV SCH (16:55)
[2019-01-28] MEDS: ENOXAPARIN 30MG/0.3ML SYR SUBCUT SCH (17:24)
[2019-01-28] MEDS: LEVOFLOXACIN 250MG PREMIX 50 ML IV SCH (18:56)
[2019-01-28 20:00] VITALS: BP 141/75
[2019-01-29] VITALS (7 sets, daily range): BP systolic 134–171; BP diastolic 73–90
[2019-01-29] MEDS: POTASSIUM CHLORIDE INJ 40 MEQ in DEXTROSE 5% WATER 1,000 ML IV SCH ×2 (08:23→23:15)
[2019-01-29 10:12] LABS: BASOPHILS % 0.7 % (0.0-2.0); EOSINOPHILS % 8.3 % (0.0-5.0); HEMATOCRIT. 27.4 % (36.0-48.0); HEMOGLOBIN. 8.4 g/dL (12.0-16.0); LYMPHOCYTES % 11.9 % (20.0-50.0); MEAN CORPUSCULAR HEMOGLOBIN 22.3 pg (28.0-32.0); MEAN CORPUSCULAR VOLUME 72.6 fL (81.0-99.0); MEAN PLATELET VOLUME 8.9 fl (7.4-10.4); MONOCYTES % 6.4 % (2.0-8.0); NEUTROPHILS % 72.7 % (40.0-76.0); PLATELET 340 x1000/uL (130-400); RED BLOOD CELL COUNT 3.78 mill/uL (4.2-5.4); RED CELL DISTRIBUTION WIDTH 17.3 % (11.6-14.6)
[2019-01-29 10:19] LABS: CHLORIDE 105 mEq/L (98-107)
[2019-01-29] MEDS: ENOXAPARIN 30MG/0.3ML SYR SUBCUT SCH (17:54)
[2019-01-29] MEDS: LEVOFLOXACIN 250MG PREMIX 50 ML IV SCH (20:01)
[2019-01-30] VITALS (7 sets, daily range): BP systolic 138–160; BP diastolic 75–88
[2019-01-30 09:27] LABS: BASOPHILS % 0.4 % (0.0-2.0); EOSINOPHILS % 7.4 % (0.0-5.0); HEMATOCRIT. 30.6 % (36.0-48.0); HEMOGLOBIN. 9.5 g/dL (12.0-16.0); LYMPHOCYTES % 9.4 % (20.0-50.0); MEAN CORPUSCULAR HEMOGLOBIN 22.3 pg (28.0-32.0); MEAN CORPUSCULAR VOLUME 72.2 fL (81.0-99.0); MEAN PLATELET VOLUME 8.4 fl (7.4-10.4); MONOCYTES % 7.2 % (2.0-8.0); NEUTROPHILS % 75.6 % (40.0-76.0); PLATELET 311 x1000/uL (130-400); RED BLOOD CELL COUNT 4.25 mill/uL (4.2-5.4); RED CELL DISTRIBUTION WIDTH 16.9 % (11.6-14.6)
[2019-01-30] MEDS: POTASSIUM CHLORIDE INJ 40 MEQ in DEXTROSE 5% WATER 1,000 ML IV SCH (09:31)
[2019-01-30 09:35] LABS: CHLORIDE 101 mEq/L (98-107)
[2019-01-30] MEDS ORDERED: CLONIDINE 0.1MG TABLET PO PRN (13:45)
[2019-01-30] MEDS: CEFTAZIDIME PENTAHYDRATE 1 G in DEXTROSE 5% WATER 50 ML IV SCH (16:47)
[2019-01-30] MEDS: ENOXAPARIN 30MG/0.3ML SYR SUBCUT SCH (18:17)
[2019-01-30] MEDS: HYDROMORPHONE HCL/PF 2MG/ML CPJ IV PRN (21:11)
[2019-01-30] MEDS: AMLODIPINE 5MG TABLET PO SCH (21:12)
[2019-01-31] VITALS: BP 119/56
[2019-01-31 04:00] VITALS: BP 105/58
[2019-01-31] MEDS: CEFTAZIDIME PENTAHYDRATE 1 G in DEXTROSE 5% WATER 50 ML IV SCH ×2 (06:28→16:15)
[2019-01-31 08:00] VITALS: BP 152/77
[2019-01-31] MEDS: AMLODIPINE 5MG TABLET PO SCH ×2 (08:10→21:55)
[2019-01-31 10:11] LABS: BASOPHILS % 0.6 % (0.0-2.0); EOSINOPHILS % 9.3 % (0.0-5.0); HEMATOCRIT. 33.9 % (36.0-48.0); HEMOGLOBIN. 10.3 g/dL (12.0-16.0); LYMPHOCYTES % 14.5 % (20.0-50.0); MEAN CORPUSCULAR HEMOGLOBIN 22.2 pg (28.0-32.0); MEAN CORPUSCULAR VOLUME 73.3 fL (81.0-99.0); MONOCYTES % 10.2 % (2.0-8.0); NEUTROPHILS % 65.4 % (40.0-76.0); PLATELET 269 x1000/uL (130-400); RED BLOOD CELL COUNT 4.62 mill/uL (4.2-5.4); RED CELL DISTRIBUTION WIDTH 17.6 % (11.6-14.6)
[2019-01-31] MEDS: POTASSIUM CHLORIDE INJ 40 MEQ in DEXTROSE 5% WATER 1,000 ML IV SCH ×2 (11:26→16:21)
[2019-01-31 12:00] VITALS: BP 147/86
[2019-01-31 16:00] VITALS: BP 146/76
[2019-01-31] MEDS: ENOXAPARIN 30MG/0.3ML SYR SUBCUT SCH (16:15)
[2019-01-31 20:00] VITALS: BP 121/68
[2019-01-31] MEDS: HYDROMORPHONE HCL/PF 2MG/ML CPJ IV PRN (20:37)
[2019-02-01] VITALS (7 sets, daily range): BP systolic 130–150; BP diastolic 72–89
[2019-02-01] MEDS: CEFTAZIDIME PENTAHYDRATE 1 G in DEXTROSE 5% WATER 50 ML IV SCH ×2 (04:53→16:58)
[2019-02-01] MEDS: POTASSIUM CHLORIDE INJ 40 MEQ in DEXTROSE 5% WATER 1,000 ML IV SCH ×2 (07:01→14:42)
[2019-02-01] MEDS: AMLODIPINE 5MG TABLET PO SCH (08:36)
[2019-02-01] MEDS: HYDROMORPHONE HCL/PF 2MG/ML CPJ IV PRN (16:59)
[2019-02-01] MEDS: ENOXAPARIN 30MG/0.3ML SYR SUBCUT SCH (17:00)
== END 2019-02-01 18:59 | disposition home health service (06) | DRG 871 ==
LOC: ER 08:23 → 5WST 14:02 → EDBEDREQSVC 14:06 → EDBEDREQ 14:06 → ENRESERV 14:55 → CANRESERV 14:55 → EDBEDREQSVC 15:32 → ENRESERV 16:29
PROVIDERS: ADMIT Hospitalist; ATTEND Hospitalist
PROC: 02HV33Z Insertion of Infusion Device into Superior Vena Cava, Percutaneous Approach (ICD-10-PCS; principal; 2019-01-26)
PROC: B548ZZA Ultrasonography of Superior Vena Cava, Guidance (ICD-10-PCS; 2019-01-26)
DX: A41.9 Sepsis, unspecified organism (principal); E43 Unspecified severe protein-calorie malnutrition; N39.0 Urinary tract infection, site not specified; I69.354 Hemiplegia and hemiparesis following cerebral infarction affecting left non-dominant side; I10 Essential (primary) hypertension; R13.10 Dysphagia, unspecified; B96.5 Pseudomonas (aeruginosa) (mallei) (pseudomallei) as the cause of diseases classified elsewhere; E11.51 Type 2 diabetes mellitus with diabetic peripheral angiopathy without gangrene; F01.50 Vascular dementia, unspecified severity, without behavioral disturbance, psychotic disturbance, mood disturbance, and anxiety; L89.629 Pressure ulcer of left heel, unspecified stage; H40.9 Unspecified glaucoma; I25.10 Atherosclerotic heart disease of native coronary artery without angina pectoris; L89.159 Pressure ulcer of sacral region, unspecified stage; L89.899 Pressure ulcer of other site, unspecified stage; M21.952 Unspecified acquired deformity of left thigh; M21.951 Unspecified acquired deformity of right thigh; Z16.21 Resistance to vancomycin; M20.40 Other hammer toe(s) (acquired), unspecified foot; Z66 Do not resuscitate; L89.229 Pressure ulcer of left hip, unspecified stage; D64.9 Anemia, unspecified; R47.02 Dysphasia; Z87.440 Personal history of urinary (tract) infections; Z87.891 Personal history of nicotine dependence; Z93.1 Gastrostomy status; Z86.19 Personal history of other infectious and parasitic diseases; Z74.01 Bed confinement status; Z79.899 Other long term (current) drug therapy; Z22.322 Carrier or suspected carrier of Methicillin resistant Staphylococcus aureus; Z68.21 Body mass index [BMI] 21.0-21.9, adult
CPT/HCPCS: 36415; 71045; 76937; 83605; 83735; 84134; 87077; 87186; 92610; 93005; 93970; 96365; 99285; C1725; J0696; J0713; J1170; J1650; J1956; J3480; J3490; J7030; J7050; J7060; J7070

== ENCOUNTER 2019-09-06 09:52 | Inpatient (IN) | payer MEDICARE, MEDICAID ==
[~2019-09-06] VITALS: Ht 160 cm; Wt 49.9 kg
[2019-09-06] MEDS ORDERED: KETOROLAC 30MG/ML VIAL IV ONE (11:15)
[2019-09-06 12:27] LABS: BASOPHILS % 0.8 % (0.0-2.0); EOSINOPHILS % 2.7 % (0.0-5.0); HEMATOCRIT. 37.5 % (36.0-48.0); HEMOGLOBIN. 11.9 g/dL (12.0-16.0); LYMPHOCYTES % 23.7 % (20.0-50.0); MEAN CORPUSCULAR HEMOGLOBIN 24.1 pg (28.0-32.0); MEAN CORPUSCULAR VOLUME 75.8 fL (81.0-99.0); MEAN PLATELET VOLUME 8.9 fl (7.4-10.4); MONOCYTES % 12.3 % (2.0-8.0); NEUTROPHILS % 60.5 % (40.0-76.0); PLATELET 240 x1000/uL (130-400); RED BLOOD CELL COUNT 4.94 mill/uL (4.2-5.4); RED CELL DISTRIBUTION WIDTH 17.3 % (11.6-14.6)
[2019-09-06 12:36] LABS: CHLORIDE 102 mEq/L (98-107); PROTHROMBIN TIME 10.7 sec (9.6-11.0)
[2019-09-06 13:37] LABS: CLARITY URINE TURBID (CLEAR); COLOR URINE YELLOW (YELLOW); KETONES URINE NEGATIVE (NEGATIVE); LEUKOCYTE ESTERASE URINE 3+ (NEGATIVE); NITRITE URINE POSITIVE (NEGATIVE); OCCULT BLOOD URINE 2+ (NEGATIVE); PH URINE 7.5 (4.5-8.0); PROTEIN URINE 1+ (NEGATIVE); SPECIFIC GRAVITY URINE 1.013 (1.005-1.030); UROBILINOGEN URINE 0.2 E.U./dL (0.2-1.0)
[2019-09-06] MEDS ORDERED: SODIUM CHLORIDE 0.9% 1000ML BAG (SEPSIS BOLUS) IV ONE (14:30)
[2019-09-06 15:14] LABS: *AMPHETAMINES SCREEN URINE NEGATIVE (NEGATIVE); *BARBITURATES SCREEN URINE NEGATIVE (NEGATIVE); *BENZODIAZEPINES SCREEN URINE NEGATIVE (NEGATIVE); *COCAINE SCREEN URINE NEGATIVE (NEGATIVE)
[2019-09-06 15:15] LABS: CANNABINOID URINE SCREEN NEGATIVE (NEGATIVE); METHADONE URINE SCREEN NEGATIVE (NEGATIVE); OPIATES URINE SCREEN PRESUMTIVE POSITIVE (NEGATIVE); PHENCYCLIDINE URINE SCREEN NEGATIVE (NEGATIVE)
[2019-09-06] MEDS ORDERED: CEFTRIAXONE 2 G PREMIX 50 ML IV ONE (15:45)
[2019-09-06] MEDS: DEXT 5%/0.45% NACL 1000ML 1,000 ML IV SCH (16:15)
[2019-09-06] MEDS ORDERED: LORAZEPAM 2MG/ML CPJ IV PRN (17:10)
[2019-09-06] MEDS ORDERED: PIPERACILLIN/TAZ 3.375G PREMIX 50 ML IV NR (17:11)
[2019-09-06] MEDS ORDERED: ONDANSETRON HCL 4MG/2ML INJ IV PRN (17:15)
[2019-09-06] MEDS ORDERED: ENOXAPARIN 40MG/0.4ML SYR SUBCUT NR (17:18)
[2019-09-06] MEDS: MORPHINE SULFATE 2 MG/ML CPJ (NOT FOR IM USE) IV PRN (17:20)
[2019-09-06 22:50] VITALS: BP 125/57
[2019-09-06] MEDS ORDERED: PIPERACILLIN/TAZ 3.375G PREMIX 50 ML IV SCH (23:00)
[2019-09-07] VITALS: BP 98/64
[2019-09-07] MEDS ORDERED: PIPERACILLIN/TAZOBACTAM 2.25 G in DEXTROSE 5% WATER 50 ML IV SCH ×2
[2019-09-07] MEDS: PIPERACILLIN/TAZOBACTAM 2.25 G in DEXTROSE 5% WATER 50 ML IV SCH ×4 (00:11→18:20)
[2019-09-07] MEDS ORDERED: CLOP75TA33 GT (00:57)
[2019-09-07] MEDS ORDERED: AMLO10TA80 GT (00:57)
[2019-09-07] MEDS ORDERED: BACL-141 GT (00:58)
[2019-09-07 04:00] VITALS: BP 132/73
[2019-09-07] MEDS ORDERED: IOHEXOL-300 100 ML BOTTLE ONE (04:20)
[2019-09-07 05:56] LABS: HEMATOCRIT. 34.5 % (36.0-48.0); HEMOGLOBIN. 10.8 g/dL (12.0-16.0); MEAN CORPUSCULAR HEMOGLOBIN 24.1 pg (28.0-32.0); MEAN CORPUSCULAR VOLUME 77.1 fL (81.0-99.0); MEAN PLATELET VOLUME 8.6 fl (7.4-10.4); PLATELET 206 x1000/uL (130-400); RED BLOOD CELL COUNT 4.47 mill/uL (4.2-5.4); RED CELL DISTRIBUTION WIDTH 17.4 % (11.6-14.6)
[2019-09-07 07:00] LABS: CHLORIDE 110 mEq/L (98-107)
[2019-09-07 08:00] VITALS: BP 118/68
[2019-09-07] MEDS ORDERED: NA PHOS,M-B/NA PHOS,DI-BA ENEMA 118ML PR SCH (10:30)
[2019-09-07] MEDS ORDERED: BISACODYL 10MG SUPP PR PRN (10:30)
[2019-09-07] MEDS ORDERED: LACTULOSE 20G/30ML UDC PO PRN (10:30)
[2019-09-07] MEDS: AMLODIPINE 10MG TABLET GT SCH (11:18)
[2019-09-07] MEDS: BACLOFEN 10MG TABLET GT SCH ×3 (11:19→18:20)
[2019-09-07] MEDS: CLOPIDOGREL 75MG TABLET GT SCH (11:19)
[2019-09-07 12:00] VITALS: BP 105/72
[2019-09-07 16:00] VITALS: BP 122/76
[2019-09-07] MEDS: ENOXAPARIN 30MG/0.3ML SYR SUBCUT SCH (17:00)
[2019-09-07] MEDS ORDERED: ENOXAPARIN 40MG/0.4ML SYR SUBCUT SCH (17:00)
[2019-09-07 19:35] LABS: PLATELET ESTIMATE NORMAL
[2019-09-07 20:00] VITALS: BP 119/60
[2019-09-08] VITALS: BP 140/70
[2019-09-08] MEDS: PIPERACILLIN/TAZOBACTAM 2.25 G in DEXTROSE 5% WATER 50 ML IV SCH ×5 (00:23→23:10)
[2019-09-08] MEDS: MORPHINE SULFATE 2 MG/ML CPJ (NOT FOR IM USE) IV PRN (01:26)
[2019-09-08 04:00] VITALS: BP 118/66
[2019-09-08] MEDS: DEXT 5%/0.45% NACL 1000ML 1,000 ML IV SCH ×2 (05:00→20:27)
[2019-09-08 08:00] VITALS: BP 142/61
[2019-09-08] MEDS: AMLODIPINE 10MG TABLET GT SCH (09:08)
[2019-09-08] MEDS: CLOPIDOGREL 75MG TABLET GT SCH (09:08)
[2019-09-08] MEDS: BACLOFEN 10MG TABLET GT SCH ×3 (09:09→16:53)
[2019-09-08] MEDS: ACETAMINOPHEN 650MG/20.3ML UDC GT PRN (09:09)
[2019-09-08 12:00] VITALS: BP 92/56
[2019-09-08 16:00] VITALS: BP 94/60
[2019-09-08] MEDS: ENOXAPARIN 30MG/0.3ML SYR SUBCUT SCH (16:53)
[2019-09-08 20:00] VITALS: BP 124/70
[2019-09-09] VITALS: BP 126/60
[2019-09-09 04:00] VITALS: BP 151/61
[2019-09-09] MEDS: PIPERACILLIN/TAZOBACTAM 2.25 G in DEXTROSE 5% WATER 50 ML IV SCH ×3 (05:07→17:22)
[2019-09-09] MEDS: BACLOFEN 10MG TABLET GT SCH ×3 (09:19→17:22)
[2019-09-09] MEDS: CLOPIDOGREL 75MG TABLET GT SCH (09:19)
[2019-09-09] MEDS: AMLODIPINE 10MG TABLET GT SCH (09:19)
[2019-09-09] MEDS: DEXT 5%/0.45% NACL 1000ML 1,000 ML IV SCH (14:12)
[2019-09-09 16:00] VITALS: BP 120/64
[2019-09-09] MEDS: ENOXAPARIN 30MG/0.3ML SYR SUBCUT SCH (17:22)
[2019-09-09 20:00] VITALS: BP 150/77
[2019-09-10] VITALS: BP 127/74
[2019-09-10] MEDS: PIPERACILLIN/TAZOBACTAM 2.25 G in DEXTROSE 5% WATER 50 ML IV SCH ×2 (01:01→05:29)
[2019-09-10] MEDS: DEXT 5%/0.45% NACL 1000ML 1,000 ML IV SCH ×2 (01:01→13:04)
[2019-09-10 04:00] VITALS: BP 148/66
[2019-09-10 08:00] VITALS: BP 134/83
[2019-09-10] MEDS: AMLODIPINE 10MG TABLET GT SCH (08:45)
[2019-09-10] MEDS: BACLOFEN 10MG TABLET GT SCH ×3 (08:46→16:34)
[2019-09-10] MEDS: CLOPIDOGREL 75MG TABLET GT SCH (08:46)
[2019-09-10 12:00] VITALS: BP 133/76
[2019-09-10] MEDS: CEFEPIME 1,000 MG in DEXTROSE 5% WATER 50 ML IV SCH (13:08)
[2019-09-10] MEDS: ACETAMINOPHEN 650MG/20.3ML UDC GT PRN (14:28)
[2019-09-10 16:00] VITALS: BP 132/70
[2019-09-10] MEDS: ENOXAPARIN 30MG/0.3ML SYR SUBCUT SCH (16:34)
[2019-09-10 20:00] VITALS: BP 145/78
[2019-09-11] VITALS: BP 149/73
[2019-09-11] MEDS: CEFEPIME 1,000 MG in DEXTROSE 5% WATER 50 ML IV SCH ×2 (00:31→12:24)
[2019-09-11 04:00] VITALS: BP 165/90
[2019-09-11] MEDS: DEXT 5%/0.45% NACL 1000ML 1,000 ML IV SCH (04:07)
[2019-09-11 08:00] VITALS: BP 122/69
[2019-09-11] MEDS: BACLOFEN 10MG TABLET GT SCH ×2 (09:01→12:23)
[2019-09-11] MEDS: AMLODIPINE 10MG TABLET GT SCH (09:01)
[2019-09-11] MEDS: CLOPIDOGREL 75MG TABLET GT SCH (09:01)
[2019-09-11 12:00] VITALS: BP 134/82
[2019-09-11 14:02] VITALS: BP 134/82
[2019-09-11 15:55] VITALS: BP_SYST 136; BP_SYST 98; BP_DIAS 45; BP_DIAS 69
== END 2019-09-11 16:02 | disposition hospice, home (50) | DRG 871 ==
LOC: ER 09:52 → 6EST 16:19 → ENRESERV 21:22 → EDBEDREQ 22:19
PROVIDERS: ADMIT Hospitalist; ATTEND Hospitalist
DX: A41.9 Sepsis, unspecified organism (principal); E43 Unspecified severe protein-calorie malnutrition; N39.0 Urinary tract infection, site not specified; Z68.1 Body mass index [BMI] 19.9 or less, adult; E11.9 Type 2 diabetes mellitus without complications; Z51.5 Encounter for palliative care; N32.89 Other specified disorders of bladder; B96.5 Pseudomonas (aeruginosa) (mallei) (pseudomallei) as the cause of diseases classified elsewhere; Z66 Do not resuscitate; R62.7 Adult failure to thrive; I10 Essential (primary) hypertension; Z93.1 Gastrostomy status; Z86.73 Personal history of transient ischemic attack (TIA), and cerebral infarction without residual deficits; Z86.19 Personal history of other infectious and parasitic diseases; Z87.440 Personal history of urinary (tract) infections
CPT/HCPCS: 36415; 71045; 74177; 80053; 80305; 81003; 82962; 83605; 85025; 87077; 87186; 93005; 96365; 99291; J0692; J0696; J1650; J1885; J2270; J2405; J2543; J7030; J7060; Q9967